=== PATIENT | female | born 1950 | race Caucasian/White ===

== ENCOUNTER 2018-09-15 19:42 | Emergency (ER) | payer MEDICARE ==
[2018-09-15] MEDS ORDERED: traMADol TAB* 50 MG PO ONE (22:19)
--- NOTE | 2018-09-15 22:20 | ED ---
Head Injury - HPI Summary HPI Summary: This patient is a 68 year old F presenting to ED with a chief complaint of head injury on 09/10/18. The pain is described as a pressure. Patient hit the back/ top of her head on a tree limb twice this week and reports hearing a crack. Her pain has not gone away. She has taken Naproxen but it has not worked. She took an Aspirin this morning. The patient rates the pain 7/10 in severity. Symptoms aggravated by nothing. Symptoms alleviated by nothing. Patient reports dizziness. Patient denies vomiting, loss of consciousness. - History Of Current Complaint Chief Complaint: EDHeadInjury Stated Complaint: HIT HEAD PER PT Time Seen by Provider: 09/15/18 22:11 Hx Obtained From: Patient Mechanism Of Injury: Direct Blow Onset/Duration: Started Days Ago - 09/10/18, Still Present Onset of Pain: Post Accident Severity Currently: Moderate Severity Initially: Moderate Pain Intensity: 7 Pain Scale Used: 0-10 Numeric Location of Head Injury: Parietal Location: Discrete At: - Top/bacl Character: Pressure Aggravating Factor(s): Other: - Nothing Alleviating Factor(s): Other: - Nothing Associated Signs And Symptoms: Negative - LOC, vomiting, Other: - Dizziness - Allergies/Home Medications Allergies/Adverse Reactions: Allergies Allergy/AdvReac Type Severity Reaction Status Date / Time No Known Allergies Allergy Verified 09/15/18 19:47 PMH/Surg Hx/FS Hx/Imm Hx Endocrine/Hematology History: Denies: Hx Diabetes Cardiovascular History: Denies: Hx Hypertension Respiratory History: Denies: Hx Asthma, Hx Chronic Obstructive Pulmonary Disease (COPD) - Surgical History Surgery Procedure, Year, and Place: Denies Infectious Disease History: No Infectious Disease History: Denies: Traveled Outside the [place] in Last 30 Days - Family History Known Family History: Positive: Other - Negative: COPD, asthma Negative: Hypertension, Diabetes - Social History Alcohol Use: Occasionally Hx Substance Use: No Substance Use Type: Reports: None Hx Tobacco Use: No Smoking Status (MU): Never Smoked Tobacco Review of Systems Negative: Vomiting Musculoskeletal: Other - Skull pain Neurological: Negative - LOC, Other - Dizziness All Other Systems Reviewed And Are Negative: Yes Physical Exam - Summary Physical Exam Summary: VITAL SIGNS: Reviewed. GENERAL: Patient is a well-developed and nourished female who is lying comfortable in the stretcher. Patient is not in any acute respiratory distress. HEAD AND FACE: No signs of trauma. No ecchymosis, hematomas or skull depressions. No sinus tenderness. EYES: PERRLA, EOMI x 2, No injected conjunctiva, no nystagmus. EARS: Hearing grossly intact. Ear canals and tympanic membranes are within normal limits. MOUTH: Oropharynx within normal limits. NECK: Supple, trachea is midline, no adenopathy, no JVD, no carotid bruit, no c- spine tenderness, neck with full ROM CHEST: Symmetric, no tenderness at palpation LUNGS: Clear to auscultation bilaterally. No wheezing or crackles. CVS: Regular rate and rhythm, S1 and S2 present, no murmurs or gallops appreciated. ABDOMEN: Soft, non-tender. No signs of distention. No rebound no guarding, and no masses palpated. Bowel sounds are normal. EXTREMITIES: FROM in all major joints, no edema, no cyanosis or clubbing. NEURO: Alert and oriented x 3. No acute neurological deficits. Speech is normal and follows commands. GCS: 15 SKIN: Dry and warm Triage Information Reviewed: Yes Vital Signs On Initial Exam: Initial Vitals Temp Pulse Resp BP Pulse Ox 98.8 F 117 16 217/127 94 09/15/18 19:45 09/15/18 19:45 09/15/18 19:45 09/15/18 19:45 09/15/18 19:45 Vital Signs Reviewed: Yes Diagnostics - Vital Signs Vital Signs Temp Pulse Resp BP Pulse Ox 09/15/18 22:00 101.1 F 101 12 181/114 100 09/15/18 19:45 98.8 F 117 16 217/127 94 - Laboratory Lab Statement: Any lab studies that have been ordered have been reviewed, and results considered in the medical decision making process. - CT Brain CT Interpretation Completed By: Radiologist Summary of CT Findings: Focal hypodensity in the posterior aspect of the left basal ganglia, this is. consistent with an old lacunar infarct. Dr. Castillo has reviewed this radiology report. Head Injury Course/Dx Course Of Treatment: This patient is a 68 year old F presenting to ED with a chief complaint of head injury on 09/10/18, hitting her head on a tree branch. In the ED course, patient denied Ultram. Brain CT revealed Focal hypodensity in the posterior aspect of the left basal ganglia, this is consistent with an old lacunar infarct. Patient will be discharged w dx of head injury and concussion. Pt understands and agrees with this plan. - Diagnoses Provider Diagnoses: Head injury, Concussion Discharge - Sign-Out/Discharge Documenting (check all that apply): Patient Departure - Discharge Patient Received Moderate/Deep Sedation with Procedure: No - Discharge Plan Condition: Stable Disposition: HOME Patient Education Materials: Concussion (ED) Referrals: [facility] [place]Outside] - 2 Days Additional Instructions: Follow up with your primary care provider in 1-2 days. RETURN TO THE ER FOR WORSENING OR CHANGING SYMPTOMS. - Attestation Statements Document Initiated by Scribe: Yes Documenting Scribe: Kt Griffith Provider For Whom Scribe is Documenting (Include Credential): Karis Castillo MD Scribe Attestation: Kt Sanabria, scribed for Karis Castillo MD on 09/15/18 at 0049. Status of Scribe Document: Ready
[2018-09-15 23:38] VITALS: BP 189/103
== END 2018-09-15 23:36 | disposition home or self-care (01) ==
LOC: ED 19:42
DX: S06.0X9A Concussion with loss of consciousness of unspecified duration, initial encounter (principal); W22.09XA Striking against other stationary object, initial encounter
CPT/HCPCS: 70450; 99282; A9270-GY